=== PATIENT | female | born 1990 | race American Indian/Alaskan Native ===

== ENCOUNTER 2019-06-16 09:11 | Emergency (ER) | payer SELFPAY ==
--- NOTE | 2019-06-16 10:44 | Emergency Department Report ---
HPI - General Chief Complaint: Sore Throat Time Seen by Provider: 06/16/19 10:34 - HPI HPI: 28-year-old female presents to the emergency department with complaint of a 2 day history of a sore throat. The patient's daughter had culture positive strep throat in April and then again last week. The patient herself denies any past medical history. She has not taken anything for her symptoms prior to presentation. She has felt febrile but has not checked her temperature. No recent travel. She does not have a PCP. ED Past Medical Hx - Past Medical History Previous Medical History?: No - Surgical History Past Surgical History?: No - Social History Smoking Status: Never Smoker Substance Use Type: None - Medications Home Medications: Home Medications Medication Instructions Recorded Confirmed Last Taken Type Azithromycin [Zithromax Z-NAVEED] 0 mg PO DAILY #6 tab 06/16/19 Unknown Rx ED Review of Systems ROS: Stated complaint: POSS STREP THROAT Other details as noted in HPI Constitutional: chills Eyes: denies: eye pain ENT: throat pain. denies: ear pain Respiratory: cough. denies: shortness of breath Cardiovascular: denies: chest pain Gastrointestinal: denies: abdominal pain, vomiting Neurological: denies: headache, weakness Physical Exam - Physical Exam Vital Signs: Vital Signs 06/16/19 09:19 Temperature 99.0 F Pulse Rate 89 Respiratory 20 Rate Blood Pressure 131/89 [Left] Physical Exam: GENERAL: The patient is well-developed well-nourished. HENT: Normocephalic. Atraumatic. Patient has moist mucous membranes. Patient has mild tonsillar hypertrophy and erythema. No drooling or trismus. No tonsillar exudates. EYES: Extraocular motions are intact. NECK: Supple. Trachea is midline. ABDOMEN: There is no abdominal distention. SKIN: Skin is warm and dry. NEURO: The patient is awake, alert, and oriented. The patient is cooperative. The patient has no focal neurologic deficits. The patient has normal speech. MUSCULOSKELETAL: There is no tenderness or deformity. There is no evidence of acute injury. ED Course Vital Signs 06/16/19 09:19 Temperature 99.0 F Pulse Rate 89 Respiratory 20 Rate Blood Pressure 131/89 [Left] ED Medical Decision Making - Medical Decision Making This patient presents with a complaint of a sore throat and exposure to strep pharyngitis as her daughter has had it twice within the last month including within the last week. Vital signs stable. She has some mild tonsillar hypertrophy and erythema. She will be empirically treated secondary to her symptoms and exposure.. - Differential Diagnosis strep pharyngitis, viral pharyngitis, mononucleosis Critical Care Time: No Critical care attestation.: If time is entered above; I have spent that time in minutes in the direct care of this critically ill patient, excluding procedure time. ED Disposition Clinical Impression: Exposure to strep throat, Strep pharyngitis Disposition: TO HOME OR SELFCARE Is pt being admited?: No Condition: Stable Instructions: Strep Throat (ED) Additional Instructions: Please follow up with a primary care physician in the next few days. Take the antibiotics as prescribed. Do not share any food or drink, utilize lots of handwashing, see do not spread any infection. Return to the emergency Department with any worsening of your symptoms or any acute distress. Prescriptions: Azithromycin [Zithromax Z-NAVEED] 0 mg PO DAILY #6 tab Referrals: PARISH BOSTON MD [Staff Physician] - 3-5 Days GOMEZ CHAMBERLAIN DO [Staff Physician] - 3-5 Days [facility] [Outside] - 3-5 Days Time of Disposition: 10:44
[2019-06-16 10:59] VITALS: BP 129/82
== END 2019-06-16 10:58 | disposition home or self-care (01) ==
LOC: ED 09:11
DX: J02.0 Streptococcal pharyngitis (principal); Z79.899 Other long term (current) drug therapy

== ENCOUNTER 2020-06-06 08:58 | Emergency (ER) | payer SELFPAY ==
[2020-06-06 09:51] LABS: HCG Qualitative,Urine Negative (Negative)
[2020-06-06 10:01] LABS: Bacteria,Urine 2+ /HPF (Negative); Bilirubin,Urine NEG (Negative); Blood,Urine LG (Negative); Color,Urine Amber (Yellow); Mucus,Urine FEW /HPF; Renal Epithelial Cells,Urine 3 /LPF
[2020-06-06 10:03] LABS: RBC,Urine > 182.0 /HPF (0.0-6.0); WBC,Urine > 182.0 /HPF (0.0-6.0)
[2020-06-06] MEDS ORDERED: LIDOCAINE-MPF (1%) 10 MG/1 ML VIAL 5 ML INFILTRATI ONE (10:45)
--- NOTE | 2020-06-06 11:37 | Emergency Department Report ---
ED Female HPI - General Chief complaint: Urogenital-Female Stated complaint: POSSIBLE UTI Time Seen by Provider: 06/06/20 10:23 Source: patient Mode of arrival: Ambulatory Limitations: No Limitations - History of Present Illness Initial comments: Patient is a 29-year-old female presents emergency room complaints of a "UTI" that began May 29. She has associated urinary frequency, dysuria, urinary urgency, nausea. She states 2 days ago she began to have left flank pain. She states that she also has chills but denies any fever. She denies any vomiting, diarrhea. She does not report any vaginal discharge, vaginal irritation, pelvic pain. She denies any sick contacts or recent travel. She has a past medical history of sickle cell trait. She denies any medication allergies. She states that she is currently on her menstrual cycle. - Related Data Previous Rx's Medication Instructions Recorded Last Taken Type Azithromycin [Zithromax Z-NAVEED] 0 mg PO DAILY #6 tab 06/16/19 Unknown Rx Ondansetron [Zofran Odt] 4 mg PO Q8HR PRN #10 tab.rapdis 06/06/20 Unknown Rx cephALEXin [Keflex] 500 mg PO BID 10 Days #20 cap 06/06/20 Unknown Rx Allergies Allergy/AdvReac Type Severity Reaction Status Date / Time No Known Allergies Allergy Verified 06/06/20 09:01 ED Review of Systems ROS: Stated complaint: POSSIBLE UTI Other details as noted in HPI Comment: All other systems reviewed and negative ED Past Medical Hx - Past Medical History Additional medical history: SICKLE CELL TRAIT - Surgical History Past Surgical History?: No - Social History Smoking Status: Never Smoker Substance Use Type: None - Medications Home Medications: Home Medications Medication Instructions Recorded Confirmed Last Taken Type Azithromycin [Zithromax Z-NAVEED] 0 mg PO DAILY #6 tab 06/16/19 Unknown Rx Ondansetron [Zofran Odt] 4 mg PO Q8HR PRN #10 tab.rapdis 06/06/20 Unknown Rx cephALEXin [Keflex] 500 mg PO BID 10 Days #20 cap 06/06/20 Unknown Rx ED Physical Exam - General Limitations: No Limitations General appearance: alert, in no apparent distress - Head Head exam: Present: atraumatic, normocephalic - Eye Eye exam: Present: normal appearance - ENT ENT exam: Present: mucous membranes moist - Respiratory Respiratory exam: Present: normal lung sounds bilaterally. Absent: respiratory distress, wheezes, rales, rhonchi, stridor, chest wall tenderness, accessory muscle use, decreased breath sounds, prolonged expiratory - Cardiovascular Cardiovascular Exam: Present: regular rate, normal rhythm, normal heart sounds. Absent: systolic murmur, diastolic murmur, rubs, gallop - GI/Abdominal GI/Abdominal exam: Present: soft, normal bowel sounds. Absent: distended, tenderness, guarding, rebound, rigid - Back Exam Back exam: Present: CVA tenderness (L) (mild). Absent: CVA tenderness (R) - Neurological Exam Neurological exam: Present: alert, oriented X3 - Psychiatric Psychiatric exam: Present: normal affect, normal mood - Skin Skin exam: Present: warm, dry, intact ED Course Vital Signs 06/06/20 06/06/20 06/06/20 09:02 12:09 12:56 Temperature 99.5 F 101.5 F H 99.2 F Pulse Rate 115 H 108 H Respiratory 18 18 Rate Blood Pressure 136/89 Blood Pressure 113/72 [Right] O2 Sat by Pulse 100 97 Oximetry ED Medical Decision Making - Lab Data Vital Signs 06/06/20 06/06/20 06/06/20 09:02 12:09 12:56 Temperature 99.5 F 101.5 F H 99.2 F Pulse Rate 115 H 108 H Respiratory 18 18 Rate Blood Pressure 136/89 Blood Pressure 113/72 [Right] O2 Sat by Pulse 100 97 Oximetry Lab Results 06/06/20 Range/Units Unknown Urine Color Kyra (Yellow) Urine Turbidity Cloudy (Clear) Urine pH 6.0 (5.0-7.0) Ur Specific [place] 1.013 (1.003-1.030) Urine Protein 100 mg/dl (Negative) mg/dL Urine Glucose (UA) Neg (Negative) mg/dL Urine Ketones 20 (Negative) mg/dL Urine Blood Lg (Negative) Urine Nitrite Pos (Negative) Ur Reducing Substances Not Reportable Urine Bilirubin Neg (Negative) Urine Ictotest Not Reportable Urine Urobilinogen 4.0 (<2.0) mg/dL Ur Leukocyte Esterase Mod (Negative) Urine WBC (Auto) > 182.0 H (0.0-6.0) /HPF Urine RBC (Auto) > 182.0 (0.0-6.0) /HPF U Epithel Cells (Auto) 17.0 H (0-13.0) /HPF Urine Bacteria (Auto) 2+ (Negative) /HPF Urine WBC Clumps 3+ /HPF Ur Renal Epithelial Cell 3 /LPF Urine Mucus Few /HPF Urine HCG, Qual Negative (Negative) - Medical Decision Making Patient is a 29-year-old female presents emergency room complaints of a "UTI" that began May 29. She has associated urinary frequency, dysuria, urinary urgency, nausea. She states 2 days ago she began to have left flank pain. She states that she also has chills but denies any fever. She denies any vomiting, diarrhea. She does not report any vaginal discharge, vaginal irritation, pelvic pain. She denies any sick contacts or recent travel. She has a past medical history of sickle cell trait. She denies any medication allergies. She states that she is currently on her menstrual cycle. Vitals with fever and mild tachycardia, which improved upon medication administration. On exam patient has mild left CVA tenderness to percussion. UA shows evidence of significant UTI. Patient given 1 g of ceftriaxone and Tylenol in the emergency department and symptoms improved and she was feeling much better and ready to go home. Symptoms likely related to pyelonephritis given that she has fever and UTI and nausea. She is tolerating p.o. intake, patient can be given a trial of outpatient treatment and discussed very strict return precautions with patient. Advised patient that she needs to be reexamined within the next 3 days. Patient given prescription for Keflex and Zofran. Advised patient Please take medication as prescribed. Please increase your water intake over the next several days. May alternate Tylenol and ibuprofen as needed for discomfort. Follow-up with your primary care doctor for reexamination. Please have your urine retested by the primary care doctor. Return to emergency room for any new or worsening symptoms. Critical care attestation.: If time is entered above; I have spent that time in minutes in the direct care of this critically ill patient, excluding procedure time. ED Disposition Clinical Impression: UTI (urinary tract infection) Qualifiers: Urinary tract infection type: acute cystitis Hematuria presence: with hematuria Qualified Code(s): N30.01 - Acute cystitis with hematuria Disposition: TO HOME OR SELFCARE Is pt being admited?: No Does the pt Need Aspirin: No Condition: Stable Instructions: Urinary Tract Infection, Adult Additional Instructions: Please take medication as prescribed. Please increase your water intake over the next several days. May alternate Tylenol and ibuprofen as needed for discomfort. Follow-up with your primary care doctor for reexamination. Please have your urine retested by the primary care doctor. Return to emergency room f or any new or worsening symptoms. Prescriptions: cephALEXin [Keflex] 500 mg PO BID 10 Days #20 cap Ondansetron [Zofran Odt] 4 mg PO Q8HR PRN #10 tab.rapdis PRN Reason: Nausea And Vomiting Referrals: PRIMARY CAREMD [Primary Care Provider] - 2-3 Days PARISH BOSTON MD [Staff Physician] - 2-3 Days [facility] [Provider Group] - 2-3 Days Time of Disposition: 11:36 Print Language: CANADIAN
[2020-06-06] MEDS ORDERED: IBUPROFEN 800 MG TAB PO ONE (12:08)
[2020-06-06 12:10] VITALS: BP 113/72
[2020-06-06] MEDS ORDERED: ACETAMINOPHEN 325 MG TAB ONE (12:15)
[2020-06-06] MEDS ORDERED: ACETAMINOPHEN 325 MG TAB PO ONE (12:16)
== END 2020-06-06 12:58 | disposition home or self-care (01) ==
LOC: ED 08:58
DX: N39.0 Urinary tract infection, site not specified (principal); Z79.899 Other long term (current) drug therapy
CPT/HCPCS: 81001; 81025; 87086; 96372; 99283; J0696; 87076; 87186

== ENCOUNTER 2021-01-22 10:08 | Emergency (ER) | payer OTHER ==
[2021-01-22 11:29] VITALS: BP 122/79
[2021-01-22 12:00] LABS: Bacteria,Urine 2+ /HPF (Negative); Bilirubin,Urine NEG (Negative); Blood,Urine NEG (Negative); Color,Urine Amber (Yellow); Mucus,Urine FEW /HPF; Protein,Urine <15 mg/dL mg/dL (Negative)
[2021-01-22 12:05] LABS: HCG Qualitative,Urine Negative (Negative)
--- NOTE | 2021-01-22 12:12 | Emergency Department Report ---
ED Female HPI - General Chief complaint: Urogenital-Female Stated complaint: UTI Time Seen by Provider: 01/22/21 11:45 Source: patient Mode of arrival: Ambulatory Limitations: No Limitations - History of Present Illness Initial comments: Patient is a 30-year-old female presents emergency room complaints of right lower back pain that began 2 days ago. She has associated urinary frequency and urgency. She denies any dysuria, abdominal pain, fever, nausea, vomiting, diarrhea, vaginal itching or burning. She denies any concerns for STDs. Past medical history of sickle cell trait. No allergies to medicines. Last menstrual cycle 12/25/2020. - Related Data Previous Rx's Medication Instructions Recorded Last Taken Type Azithromycin [Zithromax Z-NAVEED] 0 mg PO DAILY #6 tab 06/16/19 Unknown Rx Ondansetron [Zofran Odt] 4 mg PO Q8HR PRN #10 tab.rapdis 06/06/20 Unknown Rx cephALEXin [Keflex] 500 mg PO BID 10 Days #20 cap 06/06/20 Unknown Rx cephALEXin [Keflex] 500 mg PO BID 7 Days #14 capsule 01/22/21 Unknown Rx Allergies Allergy/AdvReac Type Severity Reaction Status Date / Time No Known Allergies Allergy Verified 06/06/20 09:01 ED Review of Systems ROS: Stated complaint: UTI Other details as noted in HPI Comment: All other systems reviewed and negative ED Past Medical Hx - Past Medical History Previous Medical History?: Yes Additional medical history: SICKLE CELL TRAIT - Surgical History Past Surgical History?: No - Social History Smoking Status: Never Smoker Substance Use Type: None - Medications Home Medications: Home Medications Medication Instructions Recorded Confirmed Last Taken Type Azithromycin [Zithromax Z-NAVEED] 0 mg PO DAILY #6 tab 06/16/19 Unknown Rx Ondansetron [Zofran Odt] 4 mg PO Q8HR PRN #10 tab.rapdis 06/06/20 Unknown Rx cephALEXin [Keflex] 500 mg PO BID 10 Days #20 cap 06/06/20 Unknown Rx cephALEXin [Keflex] 500 mg PO BID 7 Days #14 capsule 01/22/21 Unknown Rx ED Physical Exam - General Limitations: No Limitations General appearance: alert, in no apparent distress - Head Head exam: Present: atraumatic, normocephalic - Eye Eye exam: Present: normal appearance - ENT ENT exam: Present: mucous membranes moist - Respiratory Respiratory exam: Present: normal lung sounds bilaterally. Absent: respiratory distress, wheezes, rales, rhonchi, stridor, chest wall tenderness, accessory muscle use, decreased breath sounds, prolonged expiratory - Cardiovascular Cardiovascular Exam: Present: regular rate, normal rhythm, normal heart sounds. Absent: systolic murmur, diastolic murmur, rubs, gallop - GI/Abdominal GI/Abdominal exam: Present: soft, normal bowel sounds. Absent: distended, tenderness, guarding, rebound, rigid - Back Exam Back exam: Absent: CVA tenderness (R), CVA tenderness (L) - Neurological Exam Neurological exam: Present: alert, oriented X3 - Psychiatric Psychiatric exam: Present: normal affect, normal mood - Skin Skin exam: Present: warm, dry, intact ED Course Vital Signs 01/22/21 11:27 Temperature 98.7 F Pulse Rate 66 Respiratory 18 Rate Blood Pressure 122/79 [Right] O2 Sat by Pulse 100 Oximetry ED Medical Decision Making - Medical Decision Making Patient is a 30-year-old female presents emergency room complaints of right lower back pain that began 2 days ago. She has associated urinary frequency and urgency. She denies any dysuria, abdominal pain, fever, nausea, vomiting, diarrhea, vaginal itching or burning. She denies any concerns for STDs. Past medical history of sickle cell trait. No allergies to medicines. Last menstrual cycle 12/25/2020. Vitals are normal. On exam no abdominal tenderness or CVA tenderness. UA shows 2+ bacteria, trace leukocyte esterase, positive nitrites. Will cover patient for UTI. Patient given prescription for medicat ion. Advised patient Please take medication as prescribed. Increase your water intake. Follow-up with your primary care doctor and have your urine retested for clearance of bacteria. Return to emergency room for any new or worsening symptoms. Critical care attestation.: If time is entered above; I have spent that time in minutes in the direct care of this critically ill patient, excluding procedure time. ED Disposition Clinical Impression: UTI (urinary tract infection) Qualifiers: Urinary tract infection type: acute cystitis Hematuria presence: without hematuria Qualified Code(s): N30.00 - Acute cystitis without hematuria Disposition: TO HOME OR SELFCARE Is pt being admited?: No Does the pt Need Aspirin: No Condition: Stable Instructions: Urinary Tract Infection, Adult Additional Instructions: Please take medication as prescribed. Increase your water intake. Follow-up with your primary care doctor and have your urine retested for clearance of bacteria. Return to emergency room for any new or worsening symptoms. Prescriptions: cephALEXin [Keflex] 500 mg PO BID 7 Days #14 capsule Referrals: PRIMARY CARE, [Primary Care Provider] - 3-5 Days Time of Disposition: 12:11 Print Language: KUWAITI
== END 2021-01-22 12:18 | disposition home or self-care (01) ==
LOC: ED 10:08
DX: N39.0 Urinary tract infection, site not specified (principal); Z79.899 Other long term (current) drug therapy
CPT/HCPCS: 81001; 81025; 87086; 99283

== ENCOUNTER 2021-05-28 07:53 | Emergency (ER) | payer OTHER ==
--- NOTE | 2021-05-28 08:26 | Emergency Department Report ---
HPI - General Chief Complaint: Urogenital-Female Time Seen by Provider: 05/28/21 08:11 - HPI HPI: 30-year-old female presents to the emergency department with a complaint of "I think I have a urinary tract infection." She has been having some low back pain and increased urinary frequency over the past 2 to 3 days. She says this is consistent with previous urinary tract infections. She denies any vaginal bleeding, discharge, dysuria, fever. She has a past medical history of sickle cell trait. She has not taken anything for symptoms prior to presentation today. She denies any problems with bowel or bladder, numbness or paresthesias, focal or lateralizing weakness, difficulty with ambulation. ED Past Medical Hx - Past Medical History Additional medical history: SICKLE CELL TRAIT - Social History Smoking Status: Never Smoker Substance Use Type: None - Medications Home Medications: Home Medications Medication Instructions Recorded Confirmed Last Taken Type Azithromycin [Zithromax Z-NAVEED] 0 mg PO DAILY #6 tab 06/16/19 Unknown Rx Ondansetron [Zofran Odt] 4 mg PO Q8HR PRN #10 tab.rapdis 06/06/20 Unknown Rx cephALEXin [Keflex] 500 mg PO BID 10 Days #20 cap 06/06/20 Unknown Rx cephALEXin [Keflex] 500 mg PO BID 7 Days #14 capsule 01/22/21 Unknown Rx Vit-Fe Fumar-FA [ 1 tab PO QDAY #30 tablet 05/28/21 Unknown Rx Vitamin] ED Review of Systems ROS: Stated complaint: POSSIBLE UTI Other details as noted in HPI Comment: All other systems reviewed and negative Constitutional: denies: chills, fever Eyes: denies: eye pain, vision change ENT: denies: ear pain, throat pain Respiratory: denies: cough, shortness of breath Cardiovascular: denies: chest pain, palpitations Gastrointestinal: denies: abdominal pain, vomiting Genitourinary: frequency. denies: dysuria, discharge Musculoskeletal: back pain. denies: arthralgia Skin: denies: rash, lesions Neurological: denies: weakness, numbness, paresthesias Physical Exam - Physical Exam Vital Signs: Vital Signs 05/28/21 07:59 Temperature 98.5 F Pulse Rate 74 Respiratory 15 Rate Blood Pressure 113/63 [Right] O2 Sat by Pulse 99 Oximetry Physical Exam: GENERAL: The patient is well-developed well-nourished. HENT: Normocephalic. Atraumatic. Patient has moist mucous membranes. EYES: Extraocular motions are intact. NECK: Supple. Trachea is midline. CHEST/LUNGS: Clear to auscultation. There is no respiratory distress noted. HEART/CARDIOVASCULAR: Regular. There is no tachycardia. There is no murmur. ABDOMEN: Abdomen is soft, nontender. Patient has normal bowel sounds. SKIN: Skin is warm and dry. NEURO: The patient is awake, alert, and oriented. The patient is cooperative. The patient has no focal neurologic deficits. Normal speech. MUSCULOSKELETAL: There is no tenderness or deformity. There is no limitation range of motion. BACK: No midline thoracic or lumbar tenderness to palpation. There is reproducible lumbar bilateral paraspinal tenderness to palpation ED Course Vital Signs 05/28/21 07:59 Temperature 98.5 F Pulse Rate 74 Respiratory 15 Rate Blood Pressure 113/63 [Right] O2 Sat by Pulse 99 Oximetry ED Medical Decision Making - Radiology Data Radiology results: report reviewed ULTRASOUND OBSTETRIC COMPLETE INDICATION / CLINICAL INFORMATION: , low back pain and abdominal pain. . Clinical Gestational Age (GA) in weeks.days: 8 weeks and 4 days TECHNIQUE: Transabdominal. COMPARISON: None available. FINDINGS: The uterus contains a single gestational sac. Yolk sac and embryo are visualized. The crown-rump length measures 15.1 mm which would equate to an estimated gestational age of 7 weeks and 6 days. Cardiac activity is detected at 164 bpm. Located adjacent to the gestational sac are small hypoechoic areas measuring 2.5 x 0.7 cm and 0.7 by 0.9 cm. These may represent the sites of a small subchorionic hemorrhage. The right ovary measures 3.9 x 2.5 x 3.1 cm. The left ovary measures 3.7 x 2.3 x 1.9 cm. Vascular flow is demonstrated to both ovaries. No evidence of discrete ovarian mass or lesion. No free fluid within the visualized pelvis. IMPRESSION: Single live intrauterine with estimated gestational age of 8 weeks and 4 days based upon dating. Two small hypoechoic areas adjacent to the gestational sac are suspected to represent areas of small subchorionic hemorrhage. - Medical Decision Making This patient presents to the emergency department with a 3-day history of some low back pain that she feels is consistent with previous urinary tract infections. However urinalysis does not show any evidence of urinary tract infection but does show that the patient is currently . A ultrasound shows a live intrauterine at about 8 weeks. There are 2 small areas that are consistent with subchorionic hemorrhage. Vital signs reassuring including being afebrile. Patient will be started on vitamins and has been given outpatient referrals for [facility] groups in the area. Critical Care Time: No Critical care attestation.: If time is entered above; I have spent that time in minutes in the direct care of this critically ill patient, excluding procedure time. ED Disposition Clinical Impression: Back pain Qualifiers: Back pain location: low back pain Chronicity: unspecified Back pain laterality: bilateral Sciatica presence: without sciatica Qualified Code(s): M54.50 - Low back pain, unspecified Qualifiers: Weeks of gestation: 8 weeks Qualified Code(s): Z3A.08 - 8 weeks gestation of Disposition: HOME / SELF CARE / HOMELESS Is pt being admited?: No Condition: Stable Instructions: Acute Back Pain, Adult, First Trimester of Additional Instructions: Please follow-up with an [facility] to establish care for your . I am starting you on a vitamin. You can take Tylenol every 4-6 hours, using the dosing on the back of the bottle, as needed for any discomfort. Avoid NSAIDs such as ibuprofen, naproxen, Aleve, Midol, Advil. Return to the emergency department with any worsening of your symptoms, new or concerning symptoms not addressed during this current emergency department visit, or with any acute distress. Prescriptions: Vit-Fe Fumar-FA [ Vitamin] 1 tab PO QDAY #30 tablet Referrals: PRIMARY CAREMD [Primary Care Provider] - 3-5 Days [facility] [Provider Group] - 3-5 Days [facility] [Provider Group] - 3-5 Days [facility] [Provider Group] - 3-5 Days Time of Disposition: 10:17
[2021-05-28 08:39] LABS: HCG Qualitative,Urine Positive (Negative)
[2021-05-28 08:56] LABS: Bacteria,Urine 1+ /HPF (Negative); Bilirubin,Urine NEG (Negative); Blood,Urine NEG (Negative); Color,Urine Yellow (Yellow); Mucus,Urine FEW /HPF; Protein,Urine <15 mg/dL mg/dL (Negative); Urobilinogen,Urine < 2.0 mg/dL (<2.0)
--- NOTE | 2021-05-28 09:59 | Ultrasound Report ---
ULTRASOUND OBSTETRIC COMPLETE INDICATION / CLINICAL INFORMATION: , low back pain and abdominal pain. . Clinical Gestational Age (GA) in weeks.days: 8 weeks and 4 days TECHNIQUE: Transabdominal. COMPARISON: None available. FINDINGS: The uterus contains a single gestational sac. Yolk sac and embryo are visualized. The crown-rump jaden th measures 15.1 mm which would equate to an estimated gestational age of 7 weeks and 6 days. Cardiac activity is detected at 164 bpm. Located adjacent to the gestational sac are small hypoechoic areas measuring 2.5 x 0.7 cm and 0.7 by 0.9 cm. These may represent the sites of a small subchorionic hemor rhage. The right ovary measures 3.9 x 2.5 x 3.1 cm. The left ovary measures 3.7 x 2.3 x 1.9 cm. Vascular donald w is demonstrated to both ovaries. No evidence of discrete ovarian mass or lesion. No free fluid within the visualized pelvis. IMPRESSION: Single live intrauterine with estimated gestational age of 8 weeks and 4 days based upon da ting. Two small hypoechoic areas adjacent to the gestational sac are suspected to represent areas of small subchorionic hemorrhage. Comparison to prior ultrasound imaging would be beneficial. Short inte rval follow-up ultrasound is recommended with attention to these findings. Signer Name: Max Garcia MD Signed: 05/28/2021 9:55 AM Workstation Name: [id number]
[2021-05-28 10:41] VITALS: BP 122/78
== END 2021-05-28 10:40 | disposition home or self-care (01) ==
LOC: ED 07:53
DX: O26.891 Other specified pregnancy related conditions, first trimester (principal); M54.50 Low back pain, unspecified; Z3A.08 8 weeks gestation of pregnancy
CPT/HCPCS: 76801; 81001; 81025; 82962